=== PATIENT | female | born 1965 | race Caucasian/White ===

== ENCOUNTER → 2020-06-03 | Outpatient (CLI) | payer OTHER | LOC: EXRD 08:47 | DX: M79.641 Pain in right hand (principal); M79.642 Pain in left hand; G89.29 Other chronic pain; M19.042 Primary osteoarthritis, left hand; M19.041 Primary osteoarthritis, right hand | CPT/HCPCS: 73130 ==

== ENCOUNTER → 2020-07-29 | Outpatient (CLI) | payer OTHER | LOC: EXRD 15:35 | DX: M54.5 Low back pain (principal); M47.816 Spondylosis without myelopathy or radiculopathy, lumbar region; N20.0 Calculus of kidney | CPT/HCPCS: 72100 ==

== ENCOUNTER → 2020-10-01 | Outpatient (CLI) | payer OTHER | LOC: KOH-I 09:55 | DX: M25.551 Pain in right hip (principal) | CPT/HCPCS: 73502 ==

== ENCOUNTER → 2021-01-23 | Outpatient (CLI) | payer OTHER | LOC: KOH-I 01-22 13:30 | DX: M79.89 Other specified soft tissue disorders (principal) | CPT/HCPCS: 76882; 93971 ==

== ENCOUNTER → 2021-02-20 | Outpatient (CLI) | payer OTHER | LOC: EXRD 10:07 | DX: M54.5 Low back pain (principal); M54.9 Dorsalgia, unspecified; M19.90 Unspecified osteoarthritis, unspecified site; M51.34 Other intervertebral disc degeneration, thoracic region; M51.36 Other intervertebral disc degeneration, lumbar region | CPT/HCPCS: 72070; 72100 ==

== ENCOUNTER → 2021-03-16 | Outpatient (CLI) | payer OTHER | LOC: KOH-I 10:41 | DX: M51.16 Intervertebral disc disorders with radiculopathy, lumbar region (principal) | CPT/HCPCS: 72148 ==

== ENCOUNTER → 2021-06-01 | Outpatient (CLI) | payer OTHER | LOC: KOH-I 13:56 | DX: M54.9 Dorsalgia, unspecified (principal); R31.9 Hematuria, unspecified; N20.0 Calculus of kidney; N13.30 Unspecified hydronephrosis | CPT/HCPCS: 74176 ==

== ENCOUNTER 2021-12-09 10:41 | Observation (INO) | payer OTHER ==
[~2021-12-09] VITALS: Ht 162.6 cm; Wt 73.7 kg
[2021-12-09 12:04] LABS: HEMOGLOBIN 15.3 gm/dl (12.3-15.3); RED BLOOD COUNT 5.25 M/UL (4.00-5.10); WHITE BLOOD COUNT 19.8 K/UL (4.5-11.0)
[2021-12-09 12:26] LABS: BUN/CREATININE RATIO 16 (0-10)
[2021-12-09] MEDS ORDERED: AMITRIPTYLINE H25 MG PO (12:51)
[2021-12-09] MEDS ORDERED: PREGABALIN150 MG PO (12:51)
[2021-12-09] MEDS ORDERED: MIRAPEX0.5 MG PO (12:52)
[2021-12-09] MEDS ORDERED: SYNTHROID125 MCG PO (12:52)
[2021-12-09] MEDS ORDERED: PROMETHAZINE12.5 M1 PO (12:52)
[2021-12-09] MEDS ORDERED: CELEBREX200 MG PO (12:53)
[2021-12-09] MEDS ORDERED: LISINOPRIL20 MG PO (12:53)
[2021-12-09] MEDS ORDERED: SERTRALINE HCL50 MG PO (12:53)
[2021-12-10 06:55] LABS: BUN/CREATININE RATIO 26 (0-10)
[2021-12-10 07:37] LABS: HEMOGLOBIN 12.7 gm/dl (12.3-15.3); RED BLOOD COUNT 4.6 M/UL (4.00-5.10); WHITE BLOOD COUNT 13.6 K/UL (4.5-11.0)
[2021-12-11 06:44] LABS: HEMOGLOBIN 11.4 gm/dl (12.3-15.3)
[2021-12-11 06:45] LABS: RED BLOOD COUNT 4.04 M/UL (4.00-5.10)
[2021-12-11 07:06] LABS: BUN/CREATININE RATIO 30 (0-10)
[2021-12-11] MEDS ORDERED: AUGMENTIN400 MG/5 M PO (09:56)
[2021-12-11] MEDS ORDERED: DIFLUCAN150 MG PO (09:56)
--- NOTE | 2021-12-11 10:49 | NUR ---
patient stated she does not need home health
== END 2021-12-11 13:27 | disposition home or self-care (01) ==
LOC: ER1 10:41 → MED SURG 4 17:07 → CDU 17:07 → MED SURG 4 19:20
PROVIDERS: Emergency Medicine; ADMIT Internal Medicine
DX: A41.9 Sepsis, unspecified organism (principal); J03.00 Acute streptococcal tonsillitis, unspecified; E86.0 Dehydration; R00.0 Tachycardia, unspecified; N20.0 Calculus of kidney; Z20.822 Contact with and (suspected) exposure to COVID-19; I10 Essential (primary) hypertension; E03.9 Hypothyroidism, unspecified; M19.90 Unspecified osteoarthritis, unspecified site; F41.9 Anxiety disorder, unspecified
CPT/HCPCS: 0241U; 36415; 70450; 70496; 70498; 71045; 71250; 80048; 80053; 80307; 81001; 83605; 83735; 84100; 85025; 85027; 87040; 87081; 87086; 87880; 93005; 96372; 96374; 96375; 96376; 99285; G0378; G0480; J1100; J1650; J1885; J2543; Q9967

== ENCOUNTER → 2021-12-23 | Outpatient (CLI) | payer OTHER ==
[~2021-12-23] MED LIST: AMITRIPTYLINE H25 MG PO; AUGMENTIN400 MG/5 M PO; CELEBREX200 MG PO; DIFLUCAN150 MG PO; LISINOPRIL20 MG PO; MIRAPEX0.5 MG PO; PREGABALIN150 MG PO; PROMETHAZINE12.5 M1 PO; SERTRALINE HCL50 MG PO; SYNTHROID125 MCG PO
[2021-12-24 04:01] LABS: ADENOVIRUS F 40/41 Not Detected (Negative); ASTROVIRUS Not Detected (Negative); CAMPYLOBACTER Not Detected (Negative); CRYPTOSPORIDIUM Not Detected (Negative); E.COLI 0157 Not Detected (Negative); ENTAMOEBA HISTOLYTICA Not Detected (Negative); ENTEROPATHOGENIC E.COLI (EPEC) Not Detected (Negative); ENTEROTOXIGENIC E.COLI (ETEC) Not Detected (Negative); GIARDIA LAMBLIA Not Detected (Negative); NOROVIRUS GI/GII Not Detected (Negative); PLESIOMONAS SHIGELLOIDES Not Detected (Negative); ROTOVIRUS A Not Detected (Negative); SALMONELLA Not Detected (Negative); SAPOVIRUS Not Detected (Negative); SHIG/ENTEROINVAS.ECOLI (EIEC) Not Detected (Negative); SHIGA-LIK TOX.PRO.E.COLI (STEC Not Detected (Negative); VIBRIO Not Detected (Negative); VIBRIO CHOLERAE Not Detected (Negative); YERSINIA ENTEROCOLITICA Not Detected (Negative)
[2021-12-24 07:36] LABS: CLOSTRIDIUM DIFFICILE TOX A/B Not Detected (Negative)
[2021-12-24 07:37] LABS: ENTEROAGGREGATIVE E.COLI (EAEC DETECTED (Negative)
== END ==
LOC: LBRF 17:52
PROVIDERS: Registered Nurse
DX: R19.7 Diarrhea, unspecified (principal)
CPT/HCPCS: 87338; 87507